=== PATIENT | male | born 1985 | race Caucasian/White ===

== ENCOUNTER 2016-07-14 09:45 | Emergency (ER) | payer OTHER ==
[~2016-07-14] VITALS: Ht 167.6 cm; Wt 70.0 kg
[2016-07-14 09:52] VITALS: BP 117/73
== END 2016-07-14 15:32 | disposition home or self-care (01) ==
LOC: ER 13:42
DX: J34.89 Other specified disorders of nose and nasal sinuses (principal); F17.210 Nicotine dependence, cigarettes, uncomplicated
CPT/HCPCS: 99283